=== PATIENT | male | born 1990 | race Caucasian/White ===

== ENCOUNTER 2024-05-18 08:05 | Emergency (ER) | payer BC ==
[~2024-05-18] VITALS: Ht 177.8 cm; Wt 74.7 kg
[2024-05-18] MEDS ORDERED: PREDNISONE20 MG PO (10:45)
[2024-05-18] MEDS ORDERED: LORATADINE 10 MG TAB PO ONE (10:45)
[2024-05-18] MEDS ORDERED: predniSONE 20 MG TAB PO ONE (10:45)
[2024-05-18 10:59] VITALS: BP 138/70
== END 2024-05-18 11:00 | disposition home or self-care (01) ==
LOC: ED 08:05
DX: L50.9 Urticaria, unspecified (principal)
CPT/HCPCS: 99282; J7512